=== PATIENT | female | born 1980 | race Caucasian/White ===

== ENCOUNTER 2019-09-29 08:16 | Emergency (ER) | payer BC ==
[2019-09-29 08:36] VITALS: BP 105/60
--- NOTE | 2019-09-29 08:46 | UC ---
Lower Extremity/Ankle HPI - HPI Summary HPI Summary: 39 yo with right foot pain since an 8 mile run x 2 days ago. Typically runs about 40 miles per week; pain began late in the run and has worsened in the past day. Has been using ibuprofen 800mg three times daily. Pain improves when foot is in her work boot. - History of Current Complaint Chief Complaint: UCLowerExtremity Stated Complaint: RT FOOT INJURY Time Seen by Provider: 09/29/19 08:38 Hx Obtained From: Patient Hx Last Menstrual Period: 09/12/19 Onset/Duration: Sudden Onset Severity Initially: Moderate Severity Currently: Moderate Pain Intensity: 7 Aggravating Factor(s): Standing, Ambulation Alleviating Factor(s): Rest, Elevation - Risk Factors Gout Risk Factors: Negative DVT Risk Factors: Negative Septic Arthritis Risk Factor: Negative - Allergies/Home Medications Allergies/Adverse Reactions: Allergies Allergy/AdvReac Type Severity Reaction Status Date / Time metronidazole [From Flagyl] Allergy Anaphylatic Verified 09/29/19 08:37 Shock ENVIROMENTAL Allergy Runny Nose Uncoded 06/01/16 09:12 Home Medications: Home Medications NK [No Home Medications Reported] 06/14/13 [History Confirmed 09/29/19] PMH/Surg Hx/FS Hx/Imm Hx Previously Healthy: Yes - Surgical History Surgical History: Yes Surgery Procedure, Year, and Place: 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, Part of liver removed and colecystectomy done 2012 - Family History Known Family History: Positive: Hypertension - father Negative: Diabetes - Social History Occupation: Employed Full-time Lives: With Family Alcohol Use: None Substance Use Type: None Smoking Status (MU): Never Smoked Tobacco - Immunization History Most Recent Influenza Vaccination: 2015 Review of Systems All Other Systems Reviewed And Are Negative: Yes Constitutional: Positive: Negative Skin: Positive: Negative Eyes: Positive: Negative ENT: Positive: Negative Respiratory: Positive: Negative Cardiovascular: Positive: Negative Gastrointestinal: Positive: Negative Genitourinary: Positive: Negative Motor: Positive: Negative Neurovascular: Positive: Negative Musculoskeletal: Positive: Arthralgia Neurological/Mental Status: Positive: Negative Psychological: Positive: Negative Is Patient Immunocompromised?: No Physical Exam Triage Information Reviewed: Yes Appearance: Well-Appearing, Pain Distress - moderate Vital Signs: Initial Vital Signs Temp 97.5 F 09/29/19 08:30 Pulse 83 09/29/19 08:30 Resp 14 09/29/19 08:30 BP 105/60 09/29/19 08:30 Pulse Ox 100 09/29/19 08:30 Vital Signs Reviewed: Yes Eye Exam: Normal ENT: Positive: Normal ENT inspection Dental Exam: Normal Neck exam: Normal Cardiovascular Exam: Normal Musculoskeletal Exam: Other - Antalgic gait; mild tenderness in the right gastroc. Achilles tendon intact. Musculoskeletal: Positive: Strength Intact, ROM Limited @ - right subtalar joint Psychological Exam: Normal Skin Exam: Normal Diagnostics - Radiology No standard instances Radiology Interpretation Completed By: Radiologist - Patient Name: NOHEMI OLEARY Medical Record#: [id number] Ordering Physician: Zandra Marsh MD Acct.#: [id number] : 1980 Age: 39 Sex: F Location: [facility] Exam Date: 09/29/19845 ADM Status: REG ER Order Information: FOOT RIGHT 3+ VWS Accession Number: [id number] CPT: 71978 Indication: RIGHT foot pain following a long run. Tender across the foot. Bruising at the base of the fifth metatarsal. Comparison: No relevant prior exams available on the [facility] for comparison. Technique: AP, lateral, and oblique views RIGHT foot. REPORT AND IMPRESSION: #. Normal articular alignment throughout the field of view. #. Negative for fracture, visible stress reaction, or osteochondral lesion. #. Preserved joint spaces without appreciable arthropathic change. #. Mild lateral soft tissue swelling at the forefoot. <Electronically signed by Tony Estevez MD in OV> 09/29/19912 Dictated By : Tony Estevez MD Dictated Date/Time: 09/29/19909 Transcribed Date/Time: 09/29/19909 Copy to: CC:Zandra Marsh MD; Dirk Patel DO Imaging [facility] [address] [place] [id number] ([phone]) ph ([phone]) ([phone]) This report is only to be considered final once signed by the Provider(s) as displayed in the "<Electronically Signed by >" field (s). Absence of a signature indicates the report is in a draft status and still needs to be finalized. In the event this document was created by someone other than the signing Provider, the individual initiating the document will be listed in the "Entered by:" or "Dictated by:" shankar. 1 of 1 Lower Extremity Course/Dx - Course Course Of Treatment: immobilize foot in CAM walker; suspected stress fracture of fifth metatarsal. - Differential Dx/Diagnosis Differential Diagnosis/HQI/PQRI: Fracture (Closed), Sprain, Strain Provider Diagnosis: Foot pain, right Discharge ED - Sign-Out/Discharge Documenting (check all that apply): Patient Departure All imaging exams completed and their final reports reviewed: Yes - Discharge Plan Condition: Stable Disposition: HOME Patient Education Materials: Foot Sprain (ED) Forms: *Work Release Referrals: Dirk Patel DO [Primary Care Provider] - Kwame Yeager MD [Medical Doctor] - Additional Instructions: Immobilizing your foot should help with healing. You can remove the boot for driving and sleeping. Use ice for 15 to 20 minutes on the foot at least 3 times per day. Continue use of ibuprofen three times daily, stopping if you have any nausea or stomach upset. You have a referral to Dr. Yeaegr for assessment of the foot. - Billing Disposition and Condition Condition: STABLE Disposition: Home
== END 2019-09-29 09:44 | disposition home or self-care (01) ==
LOC: UCCORT 08:16
DX: M79.671 Pain in right foot (principal); Z88.1 Allergy status to other antibiotic agents
CPT/HCPCS: 99202; G0463

== ENCOUNTER 2019-10-27 18:48 | Emergency (ER) | payer BC ==
[2019-10-27 20:20] LABS: ABS Basophils 0.1 10^3/ul (0-0.2); ABS Eosinophils 0.1 10^3/ul (0-0.6); ABS Lymphocytes 1.6 10^3/ul (1.0-4.8); ABS Monocytes 0.5 10^3/ul (0-0.8); Eosinophil % 2.6 %; Hematocrit 36 % (35-47); Hemoglobin 12.7 g/dL (12.0-16.0); Lymphocyte % 27.6 %; Mean Corpuscular HGB Conc 35 g/dL (31-36); Mean Corpuscular Hemoglobin 32 pg (27-31); Mean Corpuscular Volume 92 fL (80-97); Mean Platelet Volume 9.2 fL (7.4-10.4); Platelet Count 214 10^3/uL (150-450); Red Blood Count 3.92 10^6 /uL (3.70-4.87); Red Cell Distribution Width 13 % (10-15); White Blood Count 5.8 10^3/uL (3.5-10.8)
[2019-10-27 20:36] LABS: ALT 10 U/L (7-52); AST 14 U/L (13-39); Albumin 4.3 g/dL (3.2-5.2); Albumin/Globulin Ratio 1.7 (1-3); Alkaline Phosphatase 46 U/L (34-104); Anion Gap 4 mmol/L (2-11); BUN/Creatinine Ratio 12.5 (8-20); Blood Urea Nitrogen 11 mg/dL (6-24); CO2 Carbon Dioxide 32 mmol/L (22-32); Calcium 9.3 mg/dL (8.6-10.3); Chloride 103 mmol/L (101-111); Creatine Kinase 130 U/L (10-223); EGFR Non-African American 71.9 (>60); Globulin 2.6 g/dL (2-4); Glucose 91 mg/dL (70-100); Potassium 3.2 mmol/L (3.5-5.0); Sodium 139 mmol/L (135-145); Total Protein 6.9 g/dL (6.4-8.9)
[2019-10-27 20:40] LABS: CKMB ng/mL 1.6 ng/mL (0.6-6.3)
[2019-10-27 20:43] LABS: HCG Pregnancy < 0.60 mIU/mL
[2019-10-27] MEDS ORDERED: Potassium Chlor 20 meq TAB.ER PO ONE (20:45)
[2019-10-27 20:49] LABS: TSH (Thyroid Stimulating Horm) 3.27 mcIU/mL (0.34-5.60)
[2019-10-27 22:23] VITALS: BP 121/72
== END 2019-10-27 21:21 | disposition home or self-care (01) ==
LOC: ED 18:48